=== PATIENT | female | born 1940 | race Caucasian/White ===

== ENCOUNTER 2017-07-27 20:22 | Emergency (ER) | payer OTHER, BC ==
[~2017-07-27] VITALS: Ht 157.5 cm; Wt 72.2 kg
[~2017-07-27 20:22] MED LIST: 12 HOUR DECONG120 M1 PO; ACIPHEX20 MG PO; ADULT LOW DOSE81 M1 PO; ALLEGRA ALLERG180 MG PO; AMLODIPINE BESYL5 MG PO; Advair 250/50 Diskus IH; Aspirin E.C. PO; BENZONATATE100 MG PO; Benadryl PO; COZAAR25 MG PO; Claritin,Alavart PO; Cozaar PO; FISH OIL + VIT1 EACH PO; Fish Oil PO; HYDRALAZINE HCL25 MG PO; HYDROCHLOROTHIA25 MG PO; Levaquin PO; PRAVACHOL80 MG PO; PRAVASTATIN SOD20 MG PO; PREDNISONE20 MG PO; PRILOSEC OTC20 MG PO; PROBIOTIC1 EAC1 PO; PROVENTIL,2.5 MG/3 M IH; Proventil,Ventolin H IH; ROBITUSSIN AC,T10 ML PO; ROBITUSSIN DM118 ML PO; Tessalon Perle PO; VENTOLIN HFA18 GM IH; VITAMIN B-122500 MCG SL; ZITHROMAX500 MG PO; predniSONE PO
[2017-07-27 20:24] VITALS: BP 196/86
[2017-07-27 22:46] LABS: HEMATOCRIT 43.6 % (36.0-46.0); HEMOGLOBIN 14.9 G/DL (11.9-15.5); MCH 31.2 PG (29.0-34.0); MCHC 34.2 G/DL (30.0-36.0); MCV 91.4 FL (83-99); PLATELET COUNT 245 K/uL (156-360); RBC DIS.WIDTH-CV 13.9 % (11.8-14.6); RBC DIS.WIDTH-SD 46.1 % (39-53); RED BLOOD COUNT 4.77 M/uL (3.80-5.20); WHITE BLOOD COUNT 7.9 K/uL (4.1-10.2)
[2017-07-27 22:58] LABS: CHLORIDE 102 mEq/L (99-109); POTASSIUM 4.5 mEq/L (3.7-5.4); SODIUM 137 mEq/L (136-147)
[2017-07-27 22:59] LABS: GLUCOSE 130 mg/dL (70-99)
[2017-07-27 23:03] LABS: CREATININE 1.3 mg/dL (0.6-1.3); GFR ESTIMATE (CALCULATED) 42 mL/min/
[2017-07-27 23:04] LABS: UREA NITROGEN (BUN) 24 mg/dL (9-23)
[2017-07-27 23:12] LABS: TROP-I INTERPRETATION NEGATIVE; TROPONIN-I < 0.01 ng/mL (0.0-0.30)
== END 2017-07-27 23:50 | disposition home or self-care (01) ==
LOC: EME 20:22
PROVIDERS: Emergency Medicine
DX: I12.9 Hypertensive chronic kidney disease with stage 1 through stage 4 chronic kidney disease, or unspecified chronic kidney disease (principal); E11.22 Type 2 diabetes mellitus with diabetic chronic kidney disease; N18.9 Chronic kidney disease, unspecified; J45.909 Unspecified asthma, uncomplicated; Z85.42 Personal history of malignant neoplasm of other parts of uterus; Z88.2 Allergy status to sulfonamides; Z79.82 Long term (current) use of aspirin
CPT/HCPCS: 80048; 83605; 84484; 85027; 93005; 99281; 99284